=== PATIENT | male | born 1980 | race Caucasian/White ===

== ENCOUNTER 2017-12-07 01:30 | Emergency (ER) ==
[2017-12-07 01:51] VITALS: BP 154/112; TEMP 98.2
[2017-12-07 02:03] VITALS: BMI 26.1
[2017-12-07] MEDS ORDERED: XANAX PO STA (02:35)
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
[2017-12-07] MEDS ORDERED: XANAX ONE (02:54)
== END 2017-12-07 03:05 | disposition home or self-care (01) ==
LOC: ED 01:30
DX: F41.9 Anxiety disorder, unspecified (principal); F43.10 Post-traumatic stress disorder, unspecified
CPT/HCPCS: 99283